=== PATIENT | male | born 1995 | race Caucasian/White ===

== ENCOUNTER 2022-01-17 19:12 | Emergency (ER) | payer BC ==
[2022-01-17] MEDS ORDERED: Ketorolac 15 MG/ML SDV IM ONE (21:30)
[2022-01-17] MEDS ORDERED: cefTRIAXone 2 GM, Lidocaine 1% 4.2 ML IM ONE ×2 (22:56)
== END 2022-01-17 21:30 | disposition home or self-care (01) ==
LOC: JD.ED 19:12
DX: N39.0 Urinary tract infection, site not specified (principal); N50.82 Scrotal pain; Z79.899 Other long term (current) drug therapy
CPT/HCPCS: 76870; 81001; 87086; 93975; 96372; 99284; J1885; 99283

== ENCOUNTER 2023-12-23 05:45 | Emergency (ER) | payer BC ==
[2023-12-23] MEDS: Ketorolac 30 MG/ML SDV IM ONE (06:24)
[2023-12-23] MEDS: Clindamycin HCl 150 MG Cap PO ONE (06:24)
== END 2023-12-23 06:29 | disposition home or self-care (01) ==
LOC: JD.ED 05:45
DX: K02.62 Dental caries on smooth surface penetrating into dentin (principal); Z88.0 Allergy status to penicillin; Z79.899 Other long term (current) drug therapy
CPT/HCPCS: 96372; 99282; A9270; J1885

== ENCOUNTER 2024-08-09 14:56 | Inpatient (IN) | payer BC ==
[2024-08-09 15:50] LABS: BASOPHILS PERCENT AUTO 0.3 % (0.0-1.0); EOSINOPHILS ABSOLUTE AUTO 0.4 K/mm3 (0.0-0.4); EOSINOPHILS PERCENT AUTO 3.3 % (0.0-6.0); HEMATOCRIT 48.5 % (42.0-52.0); HEMOGLOBIN 16.4 gm/dl (14.0-18.0); IMMATURE GRAN ABSOLUTE AUTO 0.04 K/mm3 (0.00-0.05); IMMATURE GRAN PERCENT AUTO 0.3 % (0.0-0.4); LYMPHOCYTES PERCENT AUTO 16.6 % (24.0-44.0); MEAN CORPUSCULAR HGB CONC 33.8 g/dl (32.0-36.0); MEAN CORPUSCULAR VOLUME 79.9 fl (83.0-99.0); MEAN PLATELET VOLUME 9.5 fl (9.4-12.4); MONOCYTES ABSOLUTE AUTO 0.8 K/mm3 (0.0-0.8); MONOCYTES PERCENT AUTO 6.7 % (0.0-8.0); NEUTROPHILS ABSOLUTE AUTO 8.6 K/mm3 (1.8-7.7); NEUTROPHILS PERCENT AUTO 72.8 % (41.0-71.0); PLATELET COUNT,PLT 400 K/mm3 (150-400); RED BLOOD CELL COUNT 6.07 M/mm3 (4.52-5.90); WHITE BLOOD CELL COUNT,WBC 11.87 K/mm3 (3.9-11.3)
[2024-08-09 16:00] LABS: A/G RATIO 0.9 (1-2); ALBUMIN 4.1 g/dl (3.4-5.0); BILIRUBIN TOTAL 0.5 mg/dL (0.2-1.0); BUN/CREATININE RATIO 13.8 (14-18); CALCIUM 9.3 mg/dL (8.5-10.1); CREATININE 0.8 mg/dL (0.7-1.3); EST CRCL DRUG DOSING (CG) 170.28 mL/min; MAGNESIUM 1.9 mg/dL (1.8-2.4); PROTEIN TOTAL,TP 8.5 g/dl (6.4-8.2)
[2024-08-09] MEDS: Albuterol/Ipratropium 3.0-0.5 MG/3 ML Neb Soln NEB ONE ×3 (16:09→20:10)
[2024-08-09 16:14] LABS: INR 1.04
[2024-08-09 16:16] LABS: PTT,PARTIAL THROMBOPLSTIN TIME 30.9 SECONDS (21.7-31.4)
[2024-08-09] MEDS: Sodium Chloride 0.9% 1,000 ML IV ONE (17:22)
[2024-08-09] MEDS ORDERED: Sodium Chloride 0.9% 100 ML IV SCH (17:45)
[2024-08-09] MEDS: Iopamidol 755 Mg/ML 100 ML Bottle IVPUSH ONE (18:20)
[2024-08-09] MEDS: methylPREDNISolone Sodium Succinate 125 MG/2 ML SDV IVPUSH ONE (18:41)
[2024-08-09 18:51] LABS: APPEARANCE,URINE CLEAR (Clear); BILIRUBIN,URINE NEGATIVE (Negative); COLOR,URINE YELLOW (Yellow); GLUCOSE,URINE NEGATIVE (Negative); KETONES,URINE 1+ (Negative); LEUKOCYTE ESTERASE,URINE NEGATIVE (Negative); NITRITE,URINE NEGATIVE (Negative); OCCULT BLOOD,URINE NEGATIVE (Negative); PH,URINE 6.5 (5.0-8.0); PROTEIN,URINE 1+ (Negative); UROBILINOGEN,URINE 0.2 (0.2-1.0)
[2024-08-09 19:20] LABS: BACTERIA,URINE FEW /hpf (FEW); EPITHELIAL CELLS,URINE 0-5 /hpf (0-5); MUCUS,URINE MODERATE /hpf (FEW); RBC,URINE 0-5 /hpf (0-5); WBC,URINE 0-5 /hpf (0-5)
[2024-08-09] MEDS: cefTRIAXone 1 GM in Sodium Chloride 0.9% 50 ML IV ONE (20:58)
[2024-08-09] MEDS: Azithromycin 500 MG in Sodium Chloride 0.9% 250 ML IV ONE (20:58)
[2024-08-10] MEDS: Sodium Chloride 0.9% 1,000 ML IV SCH (01:48)
[2024-08-10] MEDS ORDERED: Acetaminophen 325 MG Tab PO PRN (07:33)
[2024-08-10] MEDS: Enoxaparin 40 MG/0.4 ML Syringe SUBCUT SCH (08:41)
[2024-08-10] MEDS: Albuterol/Ipratropium 3.0-0.5 MG/3 ML Neb Soln NEB PRN (15:56)
[2024-08-10] MEDS ORDERED: cefTRIAXone 1 GM in Sodium Chloride 0.9% 50 ML IV SCH (20:00)
[2024-08-10] MEDS: cefTRIAXone 1 GM Vial IV SCH (20:08)
[2024-08-10] MEDS: Azithromycin 500 MG in Sodium Chloride 0.9% 250 ML IV SCH (20:11)
[2024-08-11 05:26] LABS: ANION GAP 12.1 (5-15); BUN/CREATININE RATIO 8.8 (14-18); C-REACTIVE PROTEIN 1.11 mg/dL (<0.30); CALCIUM 8.5 mg/dL (8.5-10.1); CREATININE 0.8 mg/dL (0.7-1.3); EST CRCL DRUG DOSING (CG) 170.28 mL/min; POTASSIUM,K 4.1 mEq/L (3.5-5.1)
[2024-08-11 05:46] LABS: BASOPHILS PERCENT AUTO 0.3 % (0.0-1.0); EOSINOPHILS ABSOLUTE AUTO 0.1 K/mm3 (0.0-0.4); EOSINOPHILS PERCENT AUTO 0.7 % (0.0-6.0); HEMATOCRIT 42.2 % (42.0-52.0); IMMATURE GRAN ABSOLUTE AUTO 0.05 K/mm3 (0.00-0.05); IMMATURE GRAN PERCENT AUTO 0.4 % (0.0-0.4); LYMPHOCYTES ABSOLUTE AUTO 2.9 K/mm3 (1.0-4.8); LYMPHOCYTES PERCENT AUTO 23.4 % (24.0-44.0); MEAN CORPUSCULAR HEMOGLOBIN 27.6 pg (28.0-32.0); MEAN CORPUSCULAR HGB CONC 33.2 g/dl (32.0-36.0); MEAN CORPUSCULAR VOLUME 83.1 fl (83.0-99.0); MEAN PLATELET VOLUME 9.9 fl (9.4-12.4); MONOCYTES ABSOLUTE AUTO 0.8 K/mm3 (0.0-0.8); MONOCYTES PERCENT AUTO 6.6 % (0.0-8.0); NEUTROPHILS ABSOLUTE AUTO 8.6 K/mm3 (1.8-7.7); NEUTROPHILS PERCENT AUTO 68.6 % (41.0-71.0); PLATELET COUNT,PLT 366 K/mm3 (150-400); RED BLOOD CELL COUNT 5.08 M/mm3 (4.52-5.90); WHITE BLOOD CELL COUNT,WBC 12.49 K/mm3 (3.9-11.3)
[2024-08-14 11:46] LABS: QNTIFERON PLUS TB1 MINUS NIL 0.04 IU/mL (<=0.34); QNTIFERON PLUS TB2 MINUS NIL 0.04 IU/mL (<=0.34); QNTIFERON TB GOLD PLUS Negative (Negative)
== END 2024-08-11 14:17 | disposition home or self-care (01) | DRG 139 ==
LOC: JD.ED 14:56 → JD.MS 20:12
PROVIDERS: ADMIT Family Medicine; ATTEND Family Medicine
DX: J18.9 Pneumonia, unspecified organism (principal); J96.01 Acute respiratory failure with hypoxia; E66.9 Obesity, unspecified; H54.7 Unspecified visual loss; J45.909 Unspecified asthma, uncomplicated; Z88.0 Allergy status to penicillin; Z68.42 Body mass index [BMI] 45.0-49.9, adult; Z90.89 Acquired absence of other organs; Z98.84 Bariatric surgery status
CPT/HCPCS: 36415; 71046; 71046-26; 71275; 71275-26; 80048; 80053; 81001; 83605; 83735; 84484; 85025; 85610; 85730; 86140; 86480; 87428-QW; 94640; 94761; 96361; 96374; 99285-25; J0456; J0696; J1650; J2919; J3490; J7030; J7050; J7620-GY; Q9967